=== PATIENT | male | born 1955 | race Caucasian/White ===

== ENCOUNTER 2017-09-21 17:37 | Emergency (ER) | payer OTHER ==
[~2017-09-21] VITALS: Ht 180.3 cm; Wt 111.1 kg
[~2017-09-21 17:37] MED LIST: CALC-515 PO; METO50TA19 PO; RANI-375 PO; SIMV-54 PO
--- NOTE | 2017-09-21 18:50 | ER Report ---
History and Physical Time Seen By MD: 18:49 HPI/ROS CHIEF COMPLAINT: Fever, cough, body aches HISTORY OF PRESENT ILLNESS: 62-year-old male presents ambulatory to the ER concerned he may have pneumonia. He's been sick for 3 days with high fevers. He's been having intermittent productive cough. But his been mostly dry. He's been taking [id number] medication with some improvement of his symptoms. He denies no other significant medical problems. Patient denies ear or throat pain. Patient denies dysuria. Patient denies joint swelling or skin lesions. REVIEW OF SYSTEMS: Respiratory: No cough, no dyspnea. Cardiovascular: No chest pain, no palpitations. Gastrointestinal: No vomiting, no abdominal pain. Musculoskeletal: No back pain. Allergies: Coded Allergies: No Known Drug Allergies (Unverified , 09/21/17) Home Meds Reported Medications Calcium Carbonate (TUMS) 200 Mg Tab.chew, 200 MG PO PRN Y for REFLUX, TAB.CHEW 02/16/16 Ranitidine Hcl (ZANTAC 75) 75 Mg Tablet, 75 MG PO BID 02/16/16 Simvastatin (SIMVASTATIN) 40 Mg Tablet, 40 MG PO HS, TAB 02/16/16 Metoprolol Succinate (METOPROLOL SUCCINATE) 50 Mg Tab.er.24h, 1 TAB PO QHS, TAB 02/16/16 Reviewed Nurses Notes: Yes Old Medical Records Reviewed: Yes Smoking Status: Former Smoker Constitutional Vital Sign - Last 24 Hours 09/21/17 09/21/17 19:04 19:51 Temp 98.7 Pulse 76 87 Resp 14 14 B/P (MAP) 136/90 125/79 (94) Pulse Ox 94 92 O2 Delivery Room Air Room Air Physical Exam General Appearance: The patient is alert, has no immediate need for airway protection and no current signs of toxicity. Vital signs stable, afebrile, appears tired but not toxic HEENT: Pupils equal and round no injection. Oropharynx without redness or exudate, mucous numbers are moist, TMs are normal Respiratory: Chest is non tender, lungs are clear to auscultation. No wheezing or rails Cardiac: regular rate and rhythm Gastrointestinal: Abdomen is soft and non tender, no masses, bowel sounds normal. Musculoskeletal: Neck: Neck is supple and non tender. Extremities have full range of motion and are non tender. Skin: No rashes or lesions. DIFFERENTIAL DIAGNOSIS: After history and physical exam differential diagnosis was considered for adult fever including but not limited to viral syndromes including influenza, urinary tract infection, pneumonia and sepsis. Medical Decision Making Data Points Laboratory Hematology Test 09/21/17 19:12 Influenza Type A Antigen Negative (NEGATIVE) Influenza Type B Antigen Positive (NEGATIVE) Chemistry Test 09/21/17 19:12 Influenza Type A Antigen Negative (NEGATIVE) Influenza Type B Antigen Positive (NEGATIVE) EKG/Imaging Imaging X-ray: Two-view chest x-ray was obtained. I viewed the images myself on the PACS system. My interpretation of the images is: No infiltrate, no effusion, normal mediastinum. The radiologist interpretation had no clinically significant variation from this interpretation. ED Course/Re-evaluation ED Course Patient was admitted to an examination room. H&P was done. The differential diagnoses was considered. On clinical examination. Patient has stable vital signs. Auscultation of the lungs reveals no Rales. Patient does have a productive cough and high fevers. Chest x-ray will be performed. Chest x-ray was unremarkable for infiltrate or effusion. A rapid influenza was positive for influenza B. Patient was offered medication for symptomatically management if [id number] medications not working. He declined. I do not think Tamiflu will be of benefit to this patient. Since he is 3 days into his illness. His is given a prescription for Tamiflu to prevent her from getting the influenza. Decision to Disposition Date: Sep 21, 2017 Decision to Disposition Time: 19:46 Depart Departure Latest Vital Signs Vital Signs Date Time Temp Pulse Resp B/P (MAP) Pulse Ox O2 Delivery O2 Flow Rate FiO2 09/21/17 19:51 87 14 125/79 (94) 92 Room Air 09/21/17 19:04 98.7 Impression: Primary Impression: Influenza Condition: Improved Disposition: HOME OR SELF-CARE Referrals: AL SOLIMAN PA-C (PCP) Patient Instructions: Influenza (ED) Additional Instructions: Take ibuprofen 200 mg 3 tablets 3 times a day with food Take Tylenol 650 mg 3 times daily in between Increase your fluid intake You may also use Robitussin-DM Follow-up with your primary care if unimproved in 3-5 days Return to the ER for any worsening MARJ BUTCHER DO Sep 21, 2017 18:50
[2017-09-21 19:51] VITALS: BP 125/79
--- NOTE | 2017-09-21 19:53 | RADIOLOGY IMAGING REPORT ---
FACILITY: [facility] PATIENT NAME: Juan Luis Abdul : 1955 MR: [id number] V: [id number] EXAM DATE: ORDERING PHYSICIAN: MARJ BUTCHER TECHNOLOGIST: Location: [facility] Patient: Juan Luis Abdul : 1955 Visit/Account:[id number] Date of Sevice: 09/21/2017 EXAMINATION: Chest 2 Views HISTORY: Fever. Chills. Productive cough. COMPARISON: None. FINDINGS: The lungs are clear. No focal consolidation or pleural fluid. No pneumothorax. Normal cardiomedias tinal silhouette, with normal heart size and pulmonary vascularity. Visualized osseous structures ar e unremarkable. IMPRESSION: Negative chest. Report Dictated By: Chaka Vences MD at 09/21/2017 7:47 PM Report E-Signed By: Chaka Vences MD at 09/21/2017 7:49 PM WSN:[id number]
== END 2017-09-21 19:59 | disposition home or self-care (01) ==
LOC: ER 18:03
DX: J11.1 Influenza due to unidentified influenza virus with other respiratory manifestations (principal)
CPT/HCPCS: 71020; 87502; 99282

== ENCOUNTER → 2019-04-21 | Outpatient (REF) | payer MEDICARE ==
[~2019-04-21] MED LIST changes: -RANI-375 PO; +RANI-886 PO
== END ==
LOC: ZZSENDIN 13:56
PROVIDERS: ATTEND Physician Assistant
DX: Z12.5 Encounter for screening for malignant neoplasm of prostate (principal); Z01.818 Encounter for other preprocedural examination; R39.12 Poor urinary stream
CPT/HCPCS: 82040; 82247; 82310; 82374; 82435; 82565; 82947; 84075; 84132; 84153; 84155; 84295; 84450; 84460; 84520